=== PATIENT | male | born 1980 | race Caucasian/White ===

== ENCOUNTER 2023-03-30 05:49 | Observation (INO) | payer MEDICAID, SELFPAY ==
[2023-03-30] VITALS (7 sets, daily range): BP systolic 128–158; BP diastolic 66–100; PULSE 61–79; RESP 14–18; TEMP 36.6–37.3; O2SAT 94–100; BMI 27.2; BMI 26.6
--- NOTE | 2023-03-30 06:14 | EDS_ITS ---
HPI History of Present Illness Chief Complaint: Substance Abuse Narrative Narrative: Patient presents requesting opiate detox, he smokes fentanyl. He does not inject. He has no systemic complaints, he has been sober for about 8 months and started again 4 months ago. He smokes daily. [facility] Medical History (Updated 03/30/23 @ 06:[address] Riky Cerda MD) Mild fentanyl abuse Home Medications NK 03/30/23 [History Last Taken Unknown] Allergy/AdvReac Type Severity Reaction Status Date / Time No Known Allergies Allergy Verified 03/30/23 05:55 Social History Smoking Status: Current every day smoker tobacco type: cigarettes ROS ROS ED ROS Narrative Past medical history: Reviewed Medications: Reviewed Social history: Noncontributory Review of systems: General: No fevers Eyes: No visual changes ENT: No upper airway congestion, normal voice Neck: No neck pain Cardiovascular: No chest pain Respiratory: No shortness of breath or cough Gastrointestinal: No abdominal pain, nausea vomiting or diarrhea Genitourinary: No dysuria Musculoskeletal: Denies myalgias no difficulty with ambulation Skin: No rash Neurological: No memory loss, confusion or any focal weakness Psych: No recent behavioral changes EXAM Physical Exam Narrative Exam Narrative: Physical exam General: Well nourished, Well developed, No Acute Distress Head: Normocephalic, Atraumatic Eyes: Conjunctiva not pale ENT: Moist mucous membranes Neck: Supple, Nontender, No lymphadenopathy Cardiovascular: Regular rate, Regular rhythm Respiratory: No distress, CTA bilaterally Abdomen: Soft, Nontender, Nondistended Back: Nontender, Normal Inspection. Negative for: CVA tenderness Extremities: Nontender, No edema. No track [place] Skin: Normal color, No rash Neurological: Alert, Normal Strength, Normal Sensation Psychological: Normal affect Const Vital Signs: 03/30/23 05:50 Temperature 98.4 F Temperature Source Oral Pulse Rate 70 Respiratory Rate 15 Blood Pressure 153/100 H Blood Pressure Mean 117 Pulse Ox 97 Oxygen Delivery Method Room Air MDM MDM MDM Narrative Medical decision making narrative: Patient will need medical clearance from the ED, otherwise will be admitted for detox. He appears well he is slightly hypertensive we will watch this. He will be addressed if it continues. Discharge Plan Triage Chief Complaint: Substance Abuse ED Provider: Riky Cerda Dx/Rx/DC Orders Clinical Impression: Opiate addiction, Admitted to substance misuse detoxification center, Hypertension Prescriptions: No Action NK Disposition Disposition: Acute Care [facility]
[2023-03-30 06:30] LABS: Absolute Lymphocyte Count 1.87 X10^3/uL (0.83-4.51); Absolute Neutrophil Count 10.5 X10^3/uL (2.0-7.7); Basophil# 0.02 X10^3/uL; Basophil% 0.2 % (0-1); Eosinophil# 0.14 X10^3/uL; Eosinophils% 1.1 % (0-5); Hematocrit 41.5 % (40-54); Hemoglobin 13.8 g/dL (13.0-16.5); Lymphocyte # 1.87 X10^3/ul (0.83-4.51); Mean Corp Hgb Conc 33.3 g/dL (32-36); Mean Corpuscular Hgb 30.1 pg (27.0-32.0); Mean Corpuscular Volume 90.6 fL (80-94); Mean Platelet Vol. 11.1 fl (6.2-12.0); Monocyte# 0.73 X10^3/uL; Monocyte% 5.5 % (0-10); NRBC Flagged by Analyzer 0 % (0-5); Neutrophil # 10.51 X10^3/uL (2.7-7.7); Neutrophil % 78.8 % (47-70); Platelet Count 111 K/mm3 (150-450); RBC Distribution Width CV 13.4 % (11.6-14.6); RBC Distribution Width SD 44.7 fl (35.1-43.9); Red Blood Count 4.58 M/mm3 (4.6-6.2); White Blood Count 13.3 K/mm3 (4.4-11.0)
[2023-03-30 06:53] LABS: Anion Gap 4 (5-15); BUN 11 mg/dL (7-18); BUN/Creat Ratio 11.6 RATIO (10-20); Calcium,Total 8.8 mg/dL (8.5-10.1); Chloride 106 mmol/L (98-107); Creatinine, Serum 0.95 mg/dL (0.70-1.30); EST Glomerular Filtration Rate 93 mL/min (>60); Est Glom Filt Rate - Afr Amer 112 mL/min (>60); Glucose 100 mg/dL (74-106); Potassium 3.9 mmol/L (3.5-5.1); Sodium Level 138 mmol/L (136-145)
[2023-03-30 07:18] LABS: Amphetamine Urine VISTA NEGATIVE (<1000 ng/mL); Barbiturate Urine VISTA NEGATIVE (< 200 ng/mL); Benzodiazepine Urine VISTA NEGATIVE (< 200 ng/mL); Cocaine Urine VISTA POSITIVE (< 300 ng/mL); Ecstacy Urine VISTA NEGATIVE (< 500 ng/mL); Methadone Urine VISTA NEGATIVE (< 300 ng/mL); PCP Urine VISTA NEGATIVE (< 25 ng/mL); THC Urine VISTA POSITIVE (< 50 ng/mL); Vista UDS pH Range 6
[2023-03-30 07:32] LABS: Alcohol, Blood (Medical)-Serum < 3.0 mg/dL
--- NOTE | 2023-03-30 09:29 | HP.PCM.HOS_ITS ---
HPI - General General Date of Admission: 03/30/23 Date of Service: 03/30/23 Chief Complaint: Opiate detox HPI Narrative MELVIN ORONA, is a 42 M who presents to the emergency room at [facility] requesting services for opiate detox. Patient states that he smokes opiates, he was clean for approximately 8 months after completing a detox program in [facility], but started using again 4 months ago. Patient states that sometimes he smokes amphetamines and uses marijuana. Labs obtained in the emergency room showed an elevated white blood cell count of 13.3, patient's BMP was unremarkable, tox screen was positive for cocaine and cannabinoids. Patient has no ongoing medical problems such as hypertension , hyperlipidemia, COPD, or diabetes. Patient does not complain of any anxiety or tremors at this time. Patient states that he drinks alcohol but not on a daily basis. 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 [facility] Medical History Mild fentanyl abuse Home Medications NK 03/30/23 [History Last Taken Unknown] Allergy/AdvReac Type Severity Reaction Status Date / Time No Known Allergies Allergy Verified 03/30/23 05:55 Family History no significant family his Surgical History no surgical history Social History (Updated 03/30/23 @ 08:43 by Carmen Griffin) adopted: No Smoking Status: Current every day smoker tobacco type: cigarettes Smoking packs per day: 1 Smoking cigarettes per day: 20.0 Years smoked: 20 Smoking pack-years: 20.00 Tobacco: How many years used: 20 ROS Constitutional Constitutional: Denies anorexia, change in weight, chills, fatigue, fever(s), malaise, night sweats or weakness Eyes Eyes: Denies blurry vision, change in vision, discharge from eye(s) or eye pain Cardiovascular Cardiovascular: Denies chest pain, claudication, dyspnea on exertion, edema or palpitations Respiratory/Chest Respiratory/Chest: Denies cough, excessive phlegm production, hemoptysis, productive cough, shortness of breath at rest or shortness of breath with exertion Gastrointestinal Gastrointestinal: Denies abdominal pain, coffee ground emesis, constipation, diarrhea, dyspepsia, hematemesis, hematochezia, melena, nausea or vomiting Genitourinary Genitourinary: Denies dysuria, hematuria, urinary frequency, urinary hesitancy, urinary incontinence or urinary urgency Musculoskeletal Musculoskeletal: Denies back pain, joint pain, joint stiffness, joint swelling, myalgias or neck pain Neurologic Neurologic: Denies abnormal gait, abnormal speech, dizziness, focal weakness, headache(s), loss of vision, numbness, other visual disturbances, paresthesias, syncope or tingling Psychiatric Psychiatric: Denies anxiety, cognitive impairment, depression, irritability, mood swings or suicidal ideation Endocrine Endocrinology: Denies change in body appearance, cold intolerance, excessive sweating, heat intolerance, polydipsia or polyuria Hematologic/Lymphatic Hematologic/Lymphatic: Denies none, anemia, easy bleeding, easy bruising or lymphadenopathy Allergic/Immunologic Allergic/Immunologic: Denies rhinitis, urticaria, eczemia or asthma Vital Signs Vital Signs Vital Signs: 03/30/23 05:50 03/30/23 07:50 03/30/23 08:35 Temperature 98.4 F 97.8 F 98.4 F Temperature Source Oral Temporal Oral Pulse Rate 70 79 71 Respiratory Rate 15 14 18 Blood Pressure 153/100 H 128/76 H 131/85 H Blood Pressure Mean 117 93 100 Blood Pressure Source Monitor Blood Pressure Position Semi-Fowlers Blood Pressure Location Right Arm Pulse Ox 97 99 94 Oxygen Delivery Method Room Air Room Air Room Air Weight Weight: 77.3 kg Body Mass Index (BMI) 26.6 Physical Exam Const alert, oriented x3, no apparent distress and healthy appearing General Appearance: cooperative, well kempt and well developed Orientation / Consciousness: awake, oriented to person, oriented to place and oriented to time HEENT normocephalic and moist oral mucous membranes Eyes PERRL, EOMs intact bilaterally and conjunctivae normal Neck supple, no JVD, thyroid normal and no carotid bruits General: trachea midline Resp normal respiratory effort, no retractions, no use of accessory muscles and clear to auscultation bilaterally Auscultation: Negative for rales, rhonchi or wheezes Cardio regular rate, regular rhythm, S1 normal heart sound, S2 normal heart sound, no murmurs, no rub and no gallops GI normal to inspection, nondistended, normoactive bowel sounds, soft to palpation, non-tender and non-distended Extremity no clubbing, cyanosis or edema Skin no rashes or lesions noted General Skin Exam: no breakdown Neuro oriented x3, CN's II-XII intact bilaterally, moves all extremities, no focal motor deficits and no sensory deficits noted Sensorium / Orientation: awake and alert Speech: speech normal Psych affect normal Results Lab / Micro Data 03/30/23 06:20 03/30/23 06:20 Labs: Laboratory Results - last 24 hr 03/30/23 06:12: Urine Opiates Screen NEGATIVE, Urine Methadone Screen NEGATIVE, Ur Barbiturates Screen NEGATIVE, Ur Phencyclidine Scrn NEGATIVE, Ur Amphetamines Screen NEGATIVE, MDMA (Ecstasy) Screen NEGATIVE, U Benzodiazepines Scrn NE GATIVE, Urine Cocaine Screen POSITIVE H, U Cannabinoids Screen POSITIVE H, Ur Drug Screen Comment 03/30/23 06:20: WBC 13.3 H, RBC 4.58 L, Hgb 13.8, Hct 41.5, MCV 90.6, MCH 30.1, MCHC 33.3, RDW Std Deviation 44.7 H, RDW Coeff of Anisa 13.4, Plt Count 111 L, MPV 11.1, Immature Gran % (Auto) 0.400, Neut % (Auto) 78.8 H, Lymph % (Auto) 14.0 L, [place] % (Auto) 5.5, Eos % (Auto) 1.1, Baso % (Auto) 0.2, Absolute Neuts (auto) 10.5 H, Absolute Lymphs (auto) 1.87, Nucleated RBC % 0, Sodium 138, Potassium 3.9, Chloride 106, Carbon Dioxide 28.0, Anion Gap 4 L, BUN 11, Creatinine 0.95, Estim Creat Clear Calc 94.70, Est GFR (MDRD) Af Amer 112, Est GFR (MDRD) Non-Af 93, BUN/Creatinine Ratio 11.6, Glucose 100, Calcium 8.8, Ethyl Alcohol < 3.0 Assessment & Plan Assessment/Plan (1) Opiate addiction: PLAN: Plan 1. 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 #2 polysubstance abuse-complicates care, medical course, recovery, and prognosis Total clinical time spent by myself addressing the patient's medical issues, reviewing all of his data, and collaborating with patient's care team: 55 minutes Charges/Coding Visit Charges Inpatient E&M: 98463 Init Hosp L2
[2023-03-30] MEDS: Buprenorphine HCl 2 MG TAB.SUBL SL ×2 (13:14→21:09)
[2023-03-30] MEDS: Ondansetron 8 MG Tablet PO (15:37)
[2023-03-30] MEDS: Gabapentin 300 MG Capsule PO ×2 (15:37→23:47)
[2023-03-30] MEDS: cloNIDine HCl 0.1 MG Tablet PO (15:37)
[2023-03-30] MEDS: Methocarbamol 750 MG Tablet 1500 MG PO (18:00)
[2023-03-30] MEDS: Acetaminophen 500 MG Tablet PO ×2 (18:01→23:47)
[2023-03-30] MEDS: Dicyclomine 10 MG Capsule 20 MG PO (18:01)
[2023-03-30] MEDS: hydrOXYzine PAM 25 MG Capsule 50 MG PO (18:08)
[2023-03-30] MEDS: Ibuprofen 600 MG Tablet PO (21:13)
[2023-03-31] MEDS: cloNIDine HCl 0.1 MG Tablet PO (00:24)
[2023-03-31] MEDS: hydrOXYzine PAM 25 MG Capsule 50 MG PO ×2 (00:24→20:12)
[2023-03-31] MEDS: Methocarbamol 750 MG Tablet 1500 MG PO ×3 (00:25→17:59)
[2023-03-31 04:29] VITALS: BP 130/76; PULSE 64; RESP 18; TEMP 36.8; O2SAT 97
[2023-03-31] MEDS: Acetaminophen 500 MG Tablet PO (04:29)
[2023-03-31] MEDS: Buprenorphine HCl 2 MG TAB.SUBL SL ×3 (04:29→20:05)
[2023-03-31 09:38] VITALS: BP 134/88; PULSE 55; RESP 15; TEMP 37.2; O2SAT 96
[2023-03-31] MEDS: Gabapentin 300 MG Capsule PO ×2 (09:47→18:03)
[2023-03-31] MEDS: Ibuprofen 600 MG Tablet PO (09:47)
--- NOTE | 2023-03-31 13:46 | ADDICTION ---
This database report writer met with PT to conduct ASAM, MSE, AUDIT, DUDIT assessments and to plan for d/c. PT A+Ox4 and participated actively. All assessments completed and placed in PT's chart. PT plans to f/u with [facility] for follow-up MAT and Outpatient treatment services. PT did not indicate a need for transportation post d/c from [facility].
--- NOTE | 2023-03-31 14:00 | PCM.PN.HOSP ---
Reason for Visit Reason for Visit: Diagnoses Opioid dependence, uncomplicated (03/30/23) Subjective Subjective Patient was seen and examined today, he appears diaphoretic, he does not complain of any nervousness however. Objective Data Objective Data Vital Signs: Vital Signs Temp Pulse Resp BP Pulse Ox O2 Del Method 99 F 55 L 15 134/88 H 96 Room Air 03/31/23 09:38 03/31/23 09:38 03/31/23 09:38 03/31/23 09:38 03/31/23 09:38 03/31/23 09:55 Oxygen Delivery Method Room Air Weight: 77.3 kg Body Mass Index (BMI) 26.6 Intake & Output: Intake and Output for Last 24 Hours 03/29/23 03/30/23 03/31/23 23:59 23:59 23:59 Intake Total 380 / 880 1320 / 1320 Output Total 0 / 0 Balance 380 / 880 1320 / 1320 Lab / Micro Data 03/30/23 06:20 03/30/23 06:20 Physical Exam Narrative alert, oriented x3, no apparent distress, he does appear diaphoretic General Appearance: cooperative, well kempt and well developed Orientation / Consciousness: awake, oriented to person, oriented to place and oriented to time HEENT normocephalic and moist oral mucous membranes Eyes PERRL, EOMs intact bilaterally and conjunctivae normal Neck supple, no JVD, thyroid normal and no carotid bruits General: trachea midline Resp normal respiratory effort, no retractions, no use of accessory muscles and clear to auscultation bilaterally Auscultation: Negative for rales, rhonchi or wheezes Cardio regular rate, regular rhythm, S1 normal heart sound, S2 normal heart sound, no murmurs, no rub and no gallops GI normal to inspection, nondistended, normoactive bowel sounds, soft to palpation, non-tender and non-distended Extremity no clubbing, cyanosis or edema Skin no rashes or lesions noted General Skin Exam: no breakdown Neuro oriented x3, CN's II-XII intact bilaterally, moves all extremities, no focal motor deficits and no sensory deficits noted Sensorium / Orientation: awake and alert Speech: speech normal Psych affect normal Assessment & Plan Assessment/Plan (1) Opiate addiction: PLAN: Plan 1. Incipient opiate withdrawal-continue present medications, addiction social science teacher will talk with the patient today #2 polysubstance abuse-complicates care, medical course, recovery, and prognosis Total clinical time spent by myself addressing the patient's medical issues, reviewing all of his data, and collaborating with patient's care team: 25 minutes Charges/Coding Visit Charges Inpatient E&M: 87304 Subs Hosp L1
[2023-03-31 17:56] VITALS: BP 138/84; PULSE 55; RESP 14; TEMP 37; O2SAT 96
[2023-03-31 20:03] VITALS: BP 136/89; PULSE 52; RESP 18; TEMP 36.9; O2SAT 96
[2023-04-01 03:07] VITALS: BP 131/93; PULSE 54; RESP 18; TEMP 37.2; O2SAT 97
[2023-04-01] MEDS: Buprenorphine HCl 2 MG TAB.SUBL SL ×2 (03:08→12:13)
[2023-04-01] MEDS: Gabapentin 300 MG Capsule PO (03:11)
[2023-04-01 09:00] VITALS: BP 121/72; PULSE 65; RESP 16; TEMP 36.5; O2SAT 98
[2023-04-01 15:00] VITALS: BP 126/71; PULSE 55; RESP 18; TEMP 36.5; O2SAT 99
--- NOTE | 2023-04-01 16:11 | PCM.PN.HOSP ---
Reason for Visit Reason for Visit: Diagnoses Opioid dependence, uncomplicated (03/30/23) Subjective Subjective Patient was seen and examined today, he appears less anxious today, he states he does not want to go homeless his brother is also ready to be discharged-his brother is upstairs on [facility] [address] undergoing treatment for opioid detox also. Objective Data Objective Data Vital Signs: Vital Signs Temp Pulse Resp BP Pulse Ox O2 Del Method 97.7 F L 55 L 18 126/71 H 99 Room Air 04/01/23 15:00 04/01/23 15:00 04/01/23 15:00 04/01/23 15:00 04/01/23 15:00 04/01/23 15:00 Oxygen Delivery Method Room Air Weight: 77.3 kg Body Mass Index (BMI) 26.6 Intake & Output: Intake and Output for Last 24 Hours 03/30/23 03/31/23 04/01/23 23:59 23:59 23:59 Intake Total 380 / 880 1770 / 1770 240 / 240 Output Total 0 / 0 Balance 380 / 880 1770 / 1770 240 / 240 Lab / Micro Data 03/30/23 06:20 03/30/23 06:20 Physical Exam Const alert, oriented x3, no apparent distress and average body habitus General Appearance: cooperative, well kempt and well developed Orientation / Consciousness: awake, oriented to person, oriented to place and oriented to time HEENT normocephalic and moist oral mucous membranes Eyes PERRL, EOMs intact bilaterally and conjunctivae normal Neck supple, no JVD, thyroid normal and no carotid bruits General: trachea midline Resp normal respiratory effort and clear to auscultation bilaterally Auscultation: Negative for rales, rhonchi or wheezes Cardio regular rate, regular rhythm, no murmurs, no rub and no gallops GI normal to inspection, nondistended, normoactive bowel sounds, soft to palpation, non-tender and non-distended Extremity no clubbing, cyanosis or edema Skin no rashes or lesions noted General Skin Exam: no breakdown Neuro oriented x3, CN's II-XII intact bilaterally, no focal motor deficits and no sensory deficits noted Sensorium / Orientation: awake and alert Speech: speech normal Psych affect normal Assessment & Plan Assessment/Plan (1) Opiate addiction: PLAN: Plan 1. Opiate withdrawal-continue present medications, patient will remain on his present medications, again his brother is on MedSurg 3 undergoing treatment for opioid detox, he does not want to leave the hospital until his brother is discharged. #2 polysubstance abuse-complicates care, medical course, recovery, and prognosis Total clinical time spent by myself addressing the patient's medical issues, reviewing all of his data, and collaborating with patient's care team: 25 minutes Charges/Coding Visit Charges Inpatient E&M: [id number] [facility] Hosp L1
== END 2023-04-01 17:53 | disposition left against medical advice (07) ==
LOC: ED 06:58 → PCU 08:49
PROVIDERS: Admitting Provider Internal Medicine; Emergency Provider Emergency Medicine; Visit Provider Internal Medicine
DX: F11.23 Opioid dependence with withdrawal (principal); F15.10 Other stimulant abuse, uncomplicated; F17.210 Nicotine dependence, cigarettes, uncomplicated; I10 Essential (primary) hypertension; F12.10 Cannabis abuse, uncomplicated
CPT/HCPCS: 80048; 80307; 82077; 85025; 97802; 99283; H0012